=== PATIENT | female | born 2000 | race Caucasian/White ===

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

== ENCOUNTER 2021-12-14 19:22 | Emergency (ER) | payer OTHER ==
[~2021-12-14] VITALS: Ht 157.5 cm; Wt 79.4 kg
[~2021-12-14 19:22] MED LIST changes: +Crutch1 EACH MISC
[2021-12-14] MEDS ORDERED: Flovent Disku100 MCG INH ×2 (20:02→21:06)
[2021-12-14] MEDS ORDERED: ALBU90OI INH ×2 (20:02→21:06)
== END 2021-12-14 21:11 | disposition home or self-care (01) ==
LOC: ER 19:22
DX: R05.9 Cough, unspecified (principal)
CPT/HCPCS: 71046